=== PATIENT | male | born 1950 | race Caucasian/White ===

== ENCOUNTER → 2017-01-09 | Outpatient (CLI) | payer MEDICARE ==
[~2017-01-09] MED LIST: ASPIR-LOW81 MG PO; ATIVAN0.5 MG PO; CALCIUM 600 +1 EAC7 PO; CARDURA XL4 MG PO; CYANOCOBAL1000 MCG/2 IM; EFFIENT5 MG PO; Effient PO; FENOFIBRATE160 M1 PO; FISH OIL 1,001000 M1 PO; HYDROCHLOROTHIA50 MG PO; JANUMET XR 50-1 EAC1 PO; K-TAB10 MEQ PO; LIPITOR10 MG PO; NAPROSYN500 MG PO; NIACIN500 M1 PO; NovoLOG Pen 3 ml SC; TOPROL XL25 MG PO; TOPROL XL50 MG PO; TRENTAL400 MG PO; TYLENOL REGULA325 MG PO; Toprol XL PO; VITAMIN D400 UNI1 PO; Vitamin B-12 IM
== END | disposition home or self-care (01) ==
LOC: CDC 11:34
DX: I49.3 Ventricular premature depolarization (principal); I45.10 Unspecified right bundle-branch block; I25.2 Old myocardial infarction; R94.31 Abnormal electrocardiogram [ECG] [EKG]
CPT/HCPCS: 93000

== ENCOUNTER 2017-03-02 14:02 | Emergency (ER) | payer OTHER ==
[~2017-03-02] VITALS: Ht 172.7 cm; Wt 140.6 kg
[2017-03-02 15:48] LABS: HEMATOCRIT 41.5 % (38.0-50.0); MCH 30.2 PG (29.0-34.0); MCHC 33.7 G/DL (30.0-36.0); MCV 89.4 FL (86-99); MEAN PLAT.VOLUME 10.3 uM^3 (9.0-12.4); PLATELET COUNT 145 K/uL (156-360); RBC DIS.WIDTH-CV 12.7 % (11.8-14.6); RBC DIS.WIDTH-SD 41.7 % (39-53); RED BLOOD COUNT 4.64 M/uL (4.00-5.50)
[2017-03-02 16:10] LABS: CHLORIDE 106 mEq/L (99-109); POTASSIUM 4.3 mEq/L (3.7-5.4); SODIUM 141 mEq/L (136-147)
[2017-03-02 16:12] LABS: GLUCOSE 139 mg/dL (70-99)
[2017-03-02 16:14] LABS: ANION GAP 10 MEQ/L (2-14)
[2017-03-02 16:16] LABS: GFR ESTIMATE (CALCULATED) 58 mL/min/
[2017-03-02 16:17] LABS: UREA NITROGEN (BUN) 10 mg/dL (9-23)
[2017-03-02 17:21] LABS: TROP-I INTERPRETATION NEGATIVE; TROPONIN-I < 0.01 ng/mL (0.0-0.30)
[2017-03-02] MEDS ORDERED: VENTOLIN HFA18 GM IH (20:14)
[2017-03-02] MEDS ORDERED: KEFLEX500 MG PO (20:14)
[2017-03-02 20:35] VITALS: BP 141/70
== END 2017-03-02 20:43 | disposition home or self-care (01) ==
LOC: EME 14:02
DX: R06.02 Shortness of breath (principal); L03.116 Cellulitis of left lower limb; R60.9 Edema, unspecified; I10 Essential (primary) hypertension; Z79.82 Long term (current) use of aspirin
CPT/HCPCS: 71020; 71275; 80048; 83880; 84484; 85027; 93005; 94640; 99281; 99284

== ENCOUNTER 2017-03-28 14:54 | Inpatient (IN) | payer OTHER ==
[~2017-03-28] VITALS: Ht 172.7 cm; Wt 124.0 kg
[~2017-03-28 14:54] MED LIST changes: -ASPIR-LOW81 MG PO; +ASPIR-TRIN325 M1 PO; +CALCIUM 600 +1 EAC2 PO; -CALCIUM 600 +1 EAC7 PO; -CARDURA XL4 MG PO; +CARDURA4 MG PO; +FISH OIL 1,0001 EAC7 PO; -FISH OIL 1,001000 M1 PO; +KEFLEX500 MG PO; +VENTOLIN HFA18 GM IH; +VITAMIN D31000 UNI2 PO; -VITAMIN D400 UNI1 PO
[2017-03-28 18:24] LABS: BASOPHIL COUNT 0.1 K/uL (0-0.1); EOSINOPHIL (%) 0.5 % (0-5); HEMATOCRIT 36.7 % (38.0-50.0); IMMATURE GRANULOCYTE (%) 0.9 % (0.0-0.7); IMMATURE GRANULOCYTE COUNT 0.1 K/uL; INSTRUMENT ABS NEUTROPHIL CT 4.9 K/uL; LYMPHOCYTE COUNT 2.4 K/uL (1.0-2.8); MCH 29.7 PG (29.0-34.0); MCHC 33.5 G/DL (30.0-36.0); MCV 88.6 FL (86-99); MEAN PLAT.VOLUME 11.5 uM^3 (9.0-12.4); MONOCYTE (%) 6.5 % (3-12); MONOCYTE COUNT 0.5 K/uL (0-0.8); NEUTROPHIL (%) 61.1 % (45-76); NEUTROPHIL COUNT 4.9 K/uL (1.8-6.4); PLATELET COUNT 197 K/uL (156-360); RBC DIS.WIDTH-CV 12.4 % (11.8-14.6); RBC DIS.WIDTH-SD 40.5 % (39-53); RED BLOOD COUNT 4.14 M/uL (4.00-5.50)
[2017-03-28 18:29] LABS: INTER. NORMALIZED RATIO 1.1; PROTHROMBIN TIME 11.7 SEC (10.2-12.9)
[2017-03-28 18:31] LABS: CHLORIDE 99 mEq/L (99-109); POTASSIUM 4.1 mEq/L (3.7-5.4); PTT 25.6 SEC (25-37); SODIUM 138 mEq/L (136-147)
[2017-03-28 18:33] LABS: GLUCOSE 225 mg/dL (70-99)
[2017-03-28 18:34] LABS: ANION GAP 13 MEQ/L (2-14)
[2017-03-28 18:35] LABS: TOTAL BILIRUBIN 0.6 mg/dL (0.0-1.0)
[2017-03-28 18:36] LABS: ALKALINE PHOSPHATASE 19 IU/L (3-129)
[2017-03-28 18:37] LABS: GFR ESTIMATE (CALCULATED) 15 mL/min/
[2017-03-28 18:38] LABS: UREA NITROGEN (BUN) 84 mg/dL (9-23)
[2017-03-28 18:40] LABS: CREATINE KINASE 82 IU/L (1-294); TOTAL CK 82 IU/L (1-294)
[2017-03-28 18:43] LABS: TROP-I INTERPRETATION NEGATIVE; TROPONIN-I 0.02 ng/mL (0.0-0.30)
[2017-03-28] MEDS ORDERED: CILOSTAZOL100 MG PO (20:32)
[2017-03-28] MEDS ORDERED: VITAMIN E400 UNIT PO (20:32)
[2017-03-28] MEDS ORDERED: VALSARTAN-HCTZ1 EAC2 PO (20:32)
[2017-03-28] MEDS ORDERED: FUROSEMIDE40 MG PO (20:32)
[2017-03-28] MEDS ORDERED: VITAMIN C WIT1000 MG PO (20:32)
[2017-03-28] MEDS ORDERED: PLAVIX75 MG PO (20:33)
[2017-03-28 23:34] VITALS: BP 138/64
[2017-03-28 23:53] LABS: POINT-OF-CARE METER ID UU13113725
[2017-03-29 06:37] LABS: ANION GAP 10 MEQ/L (2-14); CHLORIDE 102 MEQ/L (99-109); GFR ESTIMATE (CALCULATED) 16 mL/min/; GLUCOSE 308 mg/dL (70-99); POTASSIUM 4.3 MEQ/L (3.7-5.4); SAMPLE HEMOLYSIS CHECK 0; SAMPLE ICTERIC CHECK 0; SAMPLE LIPEMIA CHECK 0; SODIUM 141 MEQ/L (136-147); UREA NITROGEN (BUN) 88 mg/dL (9-23)
[2017-03-29 07:06] LABS: POINT-OF-CARE METER ID UU13113725
[2017-03-29 07:15] VITALS: BP 114/53
[2017-03-29 10:11] LABS: HEMATOCRIT 30.4 % (38.0-50.0); MCV 87.6 FL (86-99)
[2017-03-29 11:01] LABS: TROP-I INTERPRETATION NEGATIVE; TROPONIN-I 0.02 ng/mL (0.0-0.30)
[2017-03-29 16:20] VITALS: BP 100/58
[2017-03-29 16:49] LABS: HEMATOCRIT 29.4 % (38.0-50.0); MCV 88.6 FL (86-99)
[2017-03-29 19:10] LABS: TROP-I INTERPRETATION NEGATIVE; TROPONIN-I 0.05 ng/mL (0.0-0.30)
[2017-03-29 23:17] VITALS: BP 104/51
[2017-03-30] VITALS (15 sets, daily range): BP systolic 78–129; BP diastolic 45–72
[2017-03-30 02:23] LABS: TROP-I INTERPRETATION NEGATIVE; TROPONIN-I 0.06 ng/mL (0.0-0.30)
[2017-03-30 06:36] LABS: EOSINOPHIL (%) 0.1 % (0-5); HEMATOCRIT 21.5 % (38.0-50.0); IMMATURE GRANULOCYTE COUNT 0.1 K/uL; INSTRUMENT ABS NEUTROPHIL CT 7.8 K/uL; LYMPHOCYTE COUNT 1.9 K/uL (1.0-2.8); MCH 29.9 PG (29.0-34.0); MCV 88.1 FL (86-99); MEAN PLAT.VOLUME 12.1 uM^3 (9.0-12.4); MONOCYTE (%) 5.2 % (3-12); MONOCYTE COUNT 0.5 K/uL (0-0.8); NEUTROPHIL (%) 75.4 % (45-76); NEUTROPHIL COUNT 7.8 K/uL (1.8-6.4); PLATELET COUNT 169 K/uL (156-360); RBC DIS.WIDTH-CV 12.6 % (11.8-14.6); RBC DIS.WIDTH-SD 40.7 % (39-53); WHITE BLOOD COUNT 10.3 K/uL (4.1-10.2)
[2017-03-30 06:37] LABS: GLUCOSE 311 mg/dL (70-99)
[2017-03-30 06:47] LABS: RED BLOOD COUNT 2.44 M/uL (4.00-5.50)
[2017-03-30 06:48] LABS: ANION GAP 11 MEQ/L (2-14); CHLORIDE 100 MEQ/L (99-109); GFR ESTIMATE (CALCULATED) 16 mL/min/; POTASSIUM 4.1 MEQ/L (3.7-5.4); SAMPLE HEMOLYSIS CHECK 0; SAMPLE ICTERIC CHECK 0; SAMPLE LIPEMIA CHECK 0; SODIUM 138 MEQ/L (136-147); URIC ACID 11.2 mg/dL (3.1-9.2)
[2017-03-30 07:04] LABS: UREA NITROGEN (BUN) 108 mg/dL (9-23)
[2017-03-30 07:13] LABS: ADD MIUA? YES; BILIRUBIN NEGATIVE; BLOOD NEGATIVE; COLOR YELLOW ((YELLOW)); GLUCOSE (STRIP) 50; KETONES NEGATIVE; LEUKOCYTES TRACE; NITRITE NEGATIVE; PROTEIN (STRIP) NEGATIVE; SPECIFIC GRAVITY 1.019 (1.000-1.030); UROBILINOGEN 0.2 MG/DL (0.2-1.0)
[2017-03-30 07:22] LABS: BACTERIA NONE SEEN /HPF; EPITHELIAL CELLS RARE /HPF; MUCUS NONE SEEN /LPF; RED BLOOD CELLS 0-5 /HPF (0-5)
[2017-03-30 07:38] LABS: UR CREATININE CONCENTRATION 261.1 MG/DL
[2017-03-30 12:30] LABS: POINT-OF-CARE METER ID UU13113819; POINT-OF-CARE USER ID 515036437
[2017-03-30 17:10] LABS: EOSINOPHIL (%) 0.2 % (0-5); HEMATOCRIT 26.7 % (38.0-50.0); IMMATURE GRANULOCYTE (%) 1.6 % (0.0-0.7); IMMATURE GRANULOCYTE COUNT 0.2 K/uL; MCH 31.8 PG (29.0-34.0); MCHC 35.6 G/DL (30.0-36.0); MCV 89.3 FL (86-99); MEAN PLAT.VOLUME 10.8 uM^3 (9.0-12.4); MONOCYTE (%) 6.6 % (3-12); MONOCYTE COUNT 0.7 K/uL (0-0.8); NEUTROPHIL (%) 63.7 % (45-76); NRBC (%) 0.2 /100 WBC (0-0); PLATELET COUNT 173 K/uL (156-360); RBC DIS.WIDTH-CV 12.8 % (11.8-14.6); RBC DIS.WIDTH-SD 42.1 % (39-53)
[2017-03-30 17:22] LABS: RED BLOOD COUNT 2.99 M/uL (4.00-5.50)
[2017-03-30 17:29] LABS: ALKALINE PHOSPHATASE 13 IU/L (3-129); ANION GAP 9 MEQ/L (2-14); CHLORIDE 106 MEQ/L (99-109); GLUCOSE 294 mg/dL (70-99); MAGNESIUM 1.8 mg/dl (1.3-2.7); POTASSIUM 3.7 MEQ/L (3.7-5.4); SAMPLE HEMOLYSIS CHECK 0; SAMPLE ICTERIC CHECK 0; SAMPLE LIPEMIA CHECK 0; SODIUM 140 MEQ/L (136-147); TOTAL BILIRUBIN 1.5 MG/DL (0.0-1.0); UREA NITROGEN (BUN) 93 mg/dL (9-23)
[2017-03-30 17:38] LABS: GFR ESTIMATE (CALCULATED) 22 mL/min/
[2017-03-30 17:46] LABS: POINT-OF-CARE METER ID UU13113731; POINT-OF-CARE USER ID 612031313
[2017-03-30 17:58] LABS: METH RESISTANT S AUREUS PCR NEGATIVE (NEGATIVE)
[2017-03-30 18:03] LABS: PROBE CHECK PASS; SPECIMEN PROCESSING CONTROL PASS
== END 2017-03-30 21:53 | disposition short-term general hospital (02) | DRG 378 ==
LOC: EME 14:54 → 5EAST 20:43 → EDOF 20:43 → ENRESERV 20:45 → 5EAST 22:41 → ENRESERV 03-30 12:31 → 4WEST 03-30 16:12
PROVIDERS: Emergency Medicine; Internal Medicine; Internal Medicine Critical Care Medicine; Internal Medicine Gastroenterology; Internal Medicine Nephrology
DX: K92.2 Gastrointestinal hemorrhage, unspecified (principal); N17.9 Acute kidney failure, unspecified; I95.9 Hypotension, unspecified; D69.1 Qualitative platelet defects; E11.51 Type 2 diabetes mellitus with diabetic peripheral angiopathy without gangrene; K76.0 Fatty (change of) liver, not elsewhere classified; I11.9 Hypertensive heart disease without heart failure; E11.65 Type 2 diabetes mellitus with hyperglycemia; E66.01 Morbid (severe) obesity due to excess calories; Z68.41 Body mass index [BMI] 40.0-44.9, adult; E78.5 Hyperlipidemia, unspecified; D50.0 Iron deficiency anemia secondary to blood loss (chronic); E86.9 Volume depletion, unspecified; G47.33 Obstructive sleep apnea (adult) (pediatric); I25.10 Atherosclerotic heart disease of native coronary artery without angina pectoris; I25.2 Old myocardial infarction; J44.1 Chronic obstructive pulmonary disease with (acute) exacerbation; K29.70 Gastritis, unspecified, without bleeding; K57.90 Diverticulosis of intestine, part unspecified, without perforation or abscess without bleeding; R09.02 Hypoxemia; Z79.02 Long term (current) use of antithrombotics/antiplatelets; Z87.891 Personal history of nicotine dependence; Z95.5 Presence of coronary angioplasty implant and graft; K42.0 Umbilical hernia with obstruction, without gangrene; L03.119 Cellulitis of unspecified part of limb; R07.89 Other chest pain; H53.8 Other visual disturbances; M25.511 Pain in right shoulder; M25.512 Pain in left shoulder; M54.2 Cervicalgia; I45.10 Unspecified right bundle-branch block; R94.31 Abnormal electrocardiogram [ECG] [EKG]
CPT/HCPCS: 71020; 76770; 78278; 80048; 80053; 81003; 82550; 82553; 82570; 82948; 83605; 83735; 83880; 84100; 84156; 84484; 84550; 85014; 85018; 85025; 85025 91; 85610; 85730; 86900; 86901; 86920; 87641; 93005; 94640; 94760; 94799; 99202; 99281; 99285; A9512; A9560; J1815; J1940; J2597; J2930; J3010; J7030; J7050; P9016; P9035

== ENCOUNTER 2017-04-18 18:32 | Inpatient (IN) | payer OTHER ==
[~2017-04-18] VITALS: Ht 172.7 cm; Wt 128.5 kg
[~2017-04-18 18:32] MED LIST changes: +CILOSTAZOL100 MG PO; +FUROSEMIDE40 MG PO; +PLAVIX75 MG PO; +VALSARTAN-HCTZ1 EAC2 PO; +VITAMIN C WIT1000 MG PO; +VITAMIN E400 UNIT PO
[2017-04-18 20:11] LABS: HEMATOCRIT 33.1 % (38.0-50.0); MCH 28.7 PG (29.0-34.0); MCHC 31.4 G/DL (30.0-36.0); MCV 91.4 FL (86-99); MEAN PLAT.VOLUME 10.3 uM^3 (9.0-12.4); PLATELET COUNT 180 K/uL (156-360); RBC DIS.WIDTH-SD 50.3 % (39-53); WHITE BLOOD COUNT 8.6 K/uL (4.1-10.2)
[2017-04-18 20:13] LABS: RED BLOOD COUNT 3.62 M/uL (4.00-5.50)
[2017-04-18 20:27] LABS: ANION GAP 16 MEQ/L (2-14); CHLORIDE 97 MEQ/L (99-109); POTASSIUM 3.3 MEQ/L (3.7-5.4); SAMPLE HEMOLYSIS CHECK 0; SAMPLE ICTERIC CHECK 0; SAMPLE LIPEMIA CHECK 0; SODIUM 140 MEQ/L (136-147)
[2017-04-18 20:33] LABS: GFR ESTIMATE (CALCULATED) 24 mL/min/; GLUCOSE 177 mg/dL (70-99); UREA NITROGEN (BUN) 38 mg/dL (9-23)
[2017-04-19 06:19] LABS: POINT-OF-CARE METER ID UU13113725
[2017-04-19 06:54] LABS: ANION GAP 10 MEQ/L (2-14); CHLORIDE 103 MEQ/L (99-109); GFR ESTIMATE (CALCULATED) 26 mL/min/; GLUCOSE 154 mg/dL (70-99); POTASSIUM 3.5 MEQ/L (3.7-5.4); SAMPLE HEMOLYSIS CHECK 0; SAMPLE ICTERIC CHECK 0; SAMPLE LIPEMIA CHECK 0; SODIUM 141 MEQ/L (136-147); UREA NITROGEN (BUN) 36 mg/dL (9-23)
[2017-04-19 08:21] VITALS: BP 115/54
[2017-04-19 11:09] LABS: POINT-OF-CARE METER ID UU13113725
[2017-04-19 15:41] VITALS: BP 101/52
[2017-04-19 16:17] LABS: POINT-OF-CARE METER ID UU13113725
[2017-04-19 18:03] LABS: ADD MIUA? NO; BILIRUBIN NEGATIVE; BLOOD NEGATIVE; COLOR YELLOW ((YELLOW)); GLUCOSE (STRIP) NEGATIVE; KETONES NEGATIVE; LEUKOCYTES NEGATIVE; NITRITE NEGATIVE; PROTEIN (STRIP) NEGATIVE; SPECIFIC GRAVITY 1.015 (1.000-1.030)
[2017-04-19 23:14] VITALS: BP 158/67
[2017-04-20 05:55] LABS: EOSINOPHIL (%) 2.4 % (0-5); EOSINOPHIL COUNT 0.1 K/uL (0-0.3); HEMATOCRIT 26.9 % (38.0-50.0); IMMATURE GRANULOCYTE (%) 0.7 % (0.0-0.7); MCH 28.8 PG (29.0-34.0); MCHC 31.2 G/DL (30.0-36.0); MCV 92.1 FL (86-99); MEAN PLAT.VOLUME 10.1 uM^3 (9.0-12.4); MONOCYTE (%) 7.5 % (3-12); MONOCYTE COUNT 0.3 K/uL (0-0.8); PLATELET COUNT 140 K/uL (156-360); RBC DIS.WIDTH-CV 14.8 % (11.8-14.6); RBC DIS.WIDTH-SD 50.1 % (39-53); RED BLOOD COUNT 2.92 M/uL (4.00-5.50); WHITE BLOOD COUNT 4.5 K/uL (4.1-10.2)
[2017-04-20 07:45] VITALS: BP 137/64
[2017-04-20 08:02] LABS: ANION GAP 9 MEQ/L (2-14); CHLORIDE 108 MEQ/L (99-109); CREATINE KINASE 135 IU/L (1-294); GLUCOSE 141 mg/dL (70-99); MAGNESIUM 1.3 mg/dl (1.3-2.7); POTASSIUM 3.6 MEQ/L (3.7-5.4); SAMPLE HEMOLYSIS CHECK 0; SAMPLE ICTERIC CHECK 0; SAMPLE LIPEMIA CHECK 0; SODIUM 144 MEQ/L (136-147); TOTAL CK 135 IU/L (1-294); UREA NITROGEN (BUN) 24 mg/dL (9-23)
[2017-04-20 08:06] LABS: GFR ESTIMATE (CALCULATED) 49 mL/min/
[2017-04-20 08:26] LABS: CK-MB 1.3 ng/mL (0.0-4.9)
[2017-04-20] MEDS ORDERED: JANUVIA25 M1 PO (13:35)
[2017-04-20] MEDS ORDERED: NOVOLOG PE100 UNITS/ SC (13:35)
[2017-04-20] MEDS ORDERED: INSULIN SYRING1 EA11 MC (13:35)
== END 2017-04-20 14:56 | disposition home or self-care (01) | DRG 683 ==
LOC: EME 18:32 → EDOF 23:39 → 5EAST 23:39 → ENRESERV 23:43 → 5EAST 04-19 00:33
PROVIDERS: Emergency Medicine; Internal Medicine; Internal Medicine Nephrology
DX: N17.9 Acute kidney failure, unspecified (principal); T46.5X5A Adverse effect of other antihypertensive drugs, initial encounter; T50.2X5A Adverse effect of carbonic-anhydrase inhibitors, benzothiadiazides and other diuretics, initial encounter; E86.0 Dehydration; E87.6 Hypokalemia; E11.22 Type 2 diabetes mellitus with diabetic chronic kidney disease; I12.9 Hypertensive chronic kidney disease with stage 1 through stage 4 chronic kidney disease, or unspecified chronic kidney disease; N18.3 Chronic kidney disease, stage 3 (moderate); E83.51 Hypocalcemia; S00.01XA Abrasion of scalp, initial encounter; R04.0 Epistaxis; Y04.0XXA Assault by unarmed brawl or fight, initial encounter; Y92.89 Other specified places as the place of occurrence of the external cause; I25.10 Atherosclerotic heart disease of native coronary artery without angina pectoris; E66.01 Morbid (severe) obesity due to excess calories; Z68.41 Body mass index [BMI] 40.0-44.9, adult; R60.0 Localized edema; I25.2 Old myocardial infarction; Z87.891 Personal history of nicotine dependence
CPT/HCPCS: 70450; 80048; 81003; 82550; 82553; 82948; 83605; 83735; 84100; 85025; 85027; 86850; 86900; 86901; 99202; 99281; 99285; J1815; J7030